=== PATIENT | male | born 1980 | race Caucasian/White ===

== ENCOUNTER 2018-10-04 00:01 | Emergency (ER) | payer OTHER ==
[~2018-10-04] VITALS: Wt 75.0 kg
[2018-10-04 00:08] VITALS: BP 132/90; PULSE 96; RESP 20
[2018-10-04] MEDS ORDERED: TETRACAINE 0.5% 4 ML OPH BOTH EYES ONE (02:00)
[2018-10-04] MEDS ORDERED: HYDROCODONE/APAP (5/325) TAB PO ONE (02:00)
[2018-10-04] MEDS ORDERED: POLY10DR19 BOTH EYES (02:11)
[2018-10-04] MEDS ORDERED: IBUP-1542 PO (02:11)
[2018-10-04] MEDS ORDERED: HYDR-4011 PO (02:12)
--- NOTE | 2018-10-04 02:20 | ERD ---
ER Documentation Chief Complaint Chief Complaint 'welding flash burn' x1hr; 10/10 pain to bilat eyes, unable to open eyes HPI Patient is a 38-year-old male who presents to the ER for concerns of a "welding flash burn" which occurred 1 hour prior to arrival. Patient states he is 10 out of 10 bilateral eye pain. He has difficulty keeping his eyes open secondary to light being bothersome to him. 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 Patient states he had similar symptoms in the past. Patient denies any fevers or chills. Patient denies any blurry vision. Patient does not wear contact lens. Patient denies any daniels or objects getting into his eyes. ROS All systems reviewed and are negative except as per history of present illness. Medications Home Meds Active Scripts Hydrocodone/Acetaminophen (Massillon 5-325 Tablet) 1 Each Tablet, 1 TAB PO Q6H PRN for PAIN, #7 TAB Prov:KALI MARES PA-C 10/04/18 Ibuprofen* (Motrin*) 600 Mg Tab, 600 MG PO Q6, #30 TAB Prov:KALI MARES PA-C 10/04/18 Polymyxin B Sulfate-TMP* (Polymyxin B-TMP Eye Drops*) 10 Ml Drops, 1 DROP BOTH EYES QID for 7 Days, EA Prov:KALI MARES PA-C 10/04/18 Allergies Allergies: Coded Allergies: No Known Allergy (Unverified , 10/04/18) PMhx/Soc Medical and Surgical Hx: pt denies Medical Hx, pt denies Surgical Hx Hx Alcohol Use: No Hx Substance Use: No Hx Tobacco Use: No Smoking Status: Never smoker FmHx Family History: No diabetes Physical Exam Vitals Vital Signs Date Temp Pulse Resp B/P (MAP) Pulse Ox O2 O2 Flow FiO2 Time Delivery Rate 10/04/18 97.2 96 20 132/90 100 00:08 (104) Physical Exam GENERAL: Well-developed, well-nourished male. Appears in no acute distress. Speaking in full sentences. HEAD: Normocephalic, atraumatic. EYES: Able to open eyes when in dark room. Pupils are equally reactive bilaterally. EOMs grossly intact. Patient able to open eyes when in dark room. No subconjunctival hemorrhages noted. ENT: Moist mucous membranes. No uvula deviation. No kissing tonsils. NECK: Supple. No meningismus. Normal range of motion of the neck. LUNG: Clear to auscultation bilaterally. No rhonchi, wheezing, rales or coarse breath sounds. HEART: Regular rate and rhythm. No murmurs, rubs or gallops. EXTREMITIES: Equal pulses bilaterally. No peripheral clubbing, cyanosis or edema. No unilateral leg swelling. NEUROLOGIC: Alert and oriented. Moving all four extremities without any difficulty. Normal speech. Steady gait. SKIN: Normal color. Warm and dry. No rashes or lesions. Results 24 hrs Current Medications Medications Dose Sig/Roshan Start Time Status Last (Trade) Ordered Route PRN Stop Time Admin Dose Reason Admin 1 tab ONCE ONCE 10/04/18 DC 10/04/18 Acetaminophen PO 02:00 02:20 / 10/04/18 02:01 Hydrocodone Bitart (Massillon (5/325)) Tetracaine 1 drop ONCE ONCE 10/04/18 DC 10/04/18 HCl BOTH EYES 02:00 02:20 (Tetracaine 10/04/18 02:01 0.5% Steri-Unit Alia) Procedures/MDM MEDICAL DECISION MAKING: This is a 38-year-old male who presents to the ER for concerns of "welding flash burn" which occurred prior to arrival. Patient states he said symptoms in the past. Patient states he was not wearing eye protective or welding earlier today. Vital signs were reviewed. Patient was afebrile. Patient likely has photokeratitis. Tetracaine was placed in eyes for comfort. Patient was given Massillon here for pain. Patient's family will drive him home. Visual acuity was attempted however patient unable to complete secondary to difficulty with keeping his eyes open. Patient denies any contact lens use. Patient will be discharged home with prescription of Polytrim to prevent infection. Patient advised to follow-up with medicaid specialist in the next 1 to 2 days. Low suspicion for globe rupture or acute angle glaucoma. Patient was advised to wear sunglasses when outside and stay in dark rooms. The patient has been prescribed Massillon during this encounter. The patient has been warned about the use of narcotics. The patient should not drive or operate heavy machinery while taking this medication. The patient was also warned about the addictive properties of narcotic medications. Narcan prescription was NOT provided given the following criteria: 1. Less 10 tablets of Massillon 5 mg were prescribed. 2. Concomitant opiate and benzodiazepine prescriptions were not provided. 3. There was no obvious evidence of prior history of opiate abuse or abuse. PRESCRIPTIONS: Polytrim, Ibuprofen, Massillon DISCHARGE: At this time, patient is stable for discharge and outpatient management.Patient advised not to wear contact lenses or eye makeup. I have instructed the patient to follow-up with his/her primary care physician in 1-2 days. I have discussed with the patient the possibility of needing to see an medicaid specialist for further workup if symptoms persist. I have instructed the patient to promptly return to the ER for any new or worsening symptoms including increased pain, fever, swelling, redness, warmth, nausea, vomiting, . The patient and/or family expressed understanding of and agreement with this plan. All questions were answered. Home care instructions were provided. Disclaimer: Inadvertent spelling and grammatical errors are likely due to EHR/dictation software use and do not reflect on the overall quality of patient care. Also, please note that the electronic time recorded on this note does not necessarily reflect the actual time of the patient encounter. Departure Diagnosis: Primary Impression: Photokeratitis, bilateral Condition: Fair Patient Instructions: Ultraviolet Keratitis Referrals: COUNTS INCLUDE 234 BEDS AT THE [facility] YOU HAVE RECEIVED A MEDICAL SCREENING EXAM AND THE RESULTS INDICATE THAT YOU DO NOT HAVE A CONDITION THAT REQUIRES URGENT TREATMENT IN THE EMERGENCY DEPARTMENT. FURTHER EVALUATION AND TREATMENT OF YOUR CONDITION CAN WAIT UNTIL YOU ARE SEEN IN YOUR DOCTORS OFFICE WITHIN THE NEXT 1-2 DAYS. IT IS YOUR RESPONSIBILITY TO MAKE AN APPOINTMENT FOR FOLOW-UP CARE. IF YOU HAVE A PRIMARY DOCTOR --you should call your primary doctor and schedule an appointment IF YOU DO NOT HAVE A PRIMARY DOCTOR YOU CAN CALL OUR PHYSICIAN REFERRAL HOTLINE AT IF YOU CAN NOT AFFORD TO SEE A PHYSICIAN YOU CAN CHOSE FROM THE FOLLOWING COUNTS INCLUDE 234 BEDS AT THE [facility] [address] [place] [facility] [place] [address] [facility]. [facility] [address] [facility] [address] [facility] [address] [facility] [address] [facility]. [facility] YOU HAVE RECEIVED A MEDICAL SCREENING EXAM AND THE RESULTS INDICATE THAT YOU DO NOT HAVE A CONDITION THAT REQUIRES URGENT TREATMENT IN THE EMERGENCY DEPARTMENT. FURTHER EVALUATION AND TREATMENT OF YOUR CONDITION CAN WAIT UNTIL YOU ARE SEEN IN YOUR DOCTORS OFFICE WITHIN THE NEXT 1-2 DAYS. IT IS YOUR RESPONSIBILITY TO MAKE AN APPOINTMENT FOR FOLOW-UP CARE. IF YOU HAVE A PRIMARY DOCTOR --you should call your primary doctor and schedule and appointment IF YOU DO NOT HAVE A PRIMARY DOCTOR YOU CAN CALL OUR PHYSICIAN REFERRAL HOTLINE AT . IF YOU CAN NOT AFFORD TO SEE A PHYSICIAN YOU CAN CHOSE FROM THE FOLLOWING [facility]: [facility] [address] [place] [address] [facility] [address] [place] [address] [facility] [address] [place] [address] [facility] Hours: Mon - Fri 9:00 AM - 5:00 PM Additional Instructions: Stay in dark rooms. Use eye patch as needed. Follow-up with medicaid specialist in the next 1 to 2 days. See referral information. Do not take Massillon when driving or operating any machinery. Call your primary care doctor TOMORROW for an appointment during the next 1-2 days.See the doctor sooner or return here if your condition worsens before your appointment time. KALI MARES PA-C Oct 04, 2018 02:20
== END 2018-10-04 02:53 | disposition home or self-care (01) ==
LOC: FTE 00:01
DX: H16.133 Photokeratitis, bilateral (principal)
CPT/HCPCS: Z7502; Z7610; 99283